=== PATIENT | male | born 1980 | race Caucasian/White ===

== ENCOUNTER 2022-10-01 22:12 | Day surgery (SDC) | payer OTHER, SELFPAY ==
[2022-10-01 22:56] VITALS: BP 141/97; PULSE 107; RESP 20; TEMP 37.5; O2SAT 98; BMI 34.2
[2022-10-01 23:00] VITALS: PULSE 91; RESP 18
[2022-10-01] MEDS: 0.9 % SODIUM CHLORIDE 1000 ml 1,000 ML 125 ML IV (23:12)
[2022-10-01 23:25] LABS: Chloride* 103 mmol/L (96-114); Potassium* 3.6 mmol/L (3.6-5.1); Sodium* 138 mmol/L (135-149)
[2022-10-01 23:28] LABS: Blood Urea Nitrogen* 15 mg/dL (5-24); Carbon Dioxide* 27 mmol/L (20-32); Creatinine* 0.9 mg/dL (0.5-1.5); Estimated Glomerular Filt Rate 109 ml/min; INR 1.11 (0.91-1.10); Prothrombin Time 14.9 Seconds
[2022-10-01 23:29] LABS: Calcium* 8.4 mg/dL (8.4-10.6); Glucose* 124 mg/dL (60-115)
--- NOTE | 2022-10-01 23:55 | PM.IMCN1 ---
Date of Consult Consult date: 10/01/22 Primary Care Provider: Not a Local Provider Consult Narrative Narrative: Jesus Powell is a 42 year old male Meds Home Medications and Allergies Allergies Allergy/AdvReac Type Severity Reaction Status Date / Time Lidocaine patch Allergy Mild Rash, Uncoded 10/01/22 23:36 redess Labs Labs: [facility] 10/01/22 23:05 Sodium 138 Potassium 3.6 Chloride 103 Carbon Dioxide 27 BUN 15 Creatinine 0.9 Glucose 124 H Calcium 8.4 Assessment and Plan Assessment and plan (1) Appendicitis: Status: Acute Plan Kris Mesaist CONSULTATION NOTE: eHospitalist was contacted by Dr. Draper With request of consultation for appendicitis: Reason for consult: Admission support HPI: This is a 42-year-old male who is transferred to the hospital after being seen in an outside ER for abdominal pain. Patient diagnosed with acute appendicitis on CT scan. White count 19,000. Lactic acid at 2.5. Patient received cefoxitin prior to transfer. Patient had Zosyn ordered by the ER provider here. His repeat labs here are pending. IV fluids are going. Currently, patient reports his pain is better after receiving morphine at the outside facility. He states he has had about a day and a half of persistent pain that has moved down to the waistline that just did not get better and that prompted him to come in to be evaluated. Currently has no other symptoms. Home Medications: None Pertinent Medical History: None Past surgical History: Back surgery Pertinent Social History: Non-smoker. Occasional alcohol use Family Hx: Hyperlipidemia Exam (performed via interactive video with assistance of bedside nurse): General: Alert, cooperative, no acute distress HEENT: EOM intact, head is normocephalic and atraumatic Ext: No deformity of the extremities is noted Skin: No rashes, bruises or lesions appreciated on gross visualization of exposed skin Neuro: Alert, oriented x 3. CN III -VII, XI, XII grossly intact, moves all extremities without any significant focal deficit appreciated Abdominal exam deferred as patient recently seen at outside ER. Refer to documentation for exam details Assessment: Acute appendicitis Plan: -As needed medications for pain and nausea -Continue Zosyn -Surgery consult for appendicitis in the morning -N.p.o. for now Thank you for including Kris Montana in the patients care. This service is available for further assistance as requested by your care team by calling [phone].
[2022-10-02] VITALS (21 sets, daily range): BP systolic 98–141; BP diastolic 65–99; PULSE 56–92; RESP 12–18; TEMP 36.6–37.2; O2SAT 92–99
[2022-10-02] MEDS: 0.9 % SODIUM CHLORIDE 1000 ml 1,000 ML IV (00:16)
[2022-10-02] MEDS: PIPERACILLIN/TAZOBACTAM 3.375 GM in 0.9 % SODIUM CHLORIDE Mini-bag 100 ML IVPB ×3 (00:17→17:15)
[2022-10-02 00:20] LABS: Basophils Percent Auto 0.1 % (0.0-3.0); Hematocrit 40.3 % (37.0-53.0); Hemoglobin* 14.2 gm/dL (13.5-17.5); Immature Granulocytes Pct Auto 0.4 %; Lymphocytes Percent Auto 8.5 % (20-44); Mean Corpuscular HGB Conc 35 gm/dL (32-36); Mean Corpuscular Hemoglobin 30 pg (26-34); Mean Corpuscular Volume 85 fL (80-100); Monocytes Percent Auto 5.4 % (0.0-11.0); Neutrophils Percent Auto 85.6 % (42.0-72.0); Platelet Count* 200 K/uL (140-440); RDW Coefficient of Variation % 11.8 % (11.5-15.5); Red Blood Count 4.74 m/uL (4.30-5.90); White Blood Count* 18.06 K/uL (4.50-11.00)
[2022-10-02 00:29] LABS: Slide Review Reflex No
[2022-10-02] MEDS: KETOROLAC 30 MG/ML inj IVP ×2 (00:47→08:38)
--- NOTE | 2022-10-02 06:28 | PC.NURSE ---
Shift note:Abdominal pain treated per eMAR with relief, pt able to rest overnight. He is afebrile, ambulates independently, no c/o nausea. Pt was NPO after midnight
[2022-10-02] MEDS: LACTATED RINGERS 1000 ML 1,000 ML 100 ML IV ×2 (07:50→12:28)
--- NOTE | 2022-10-02 09:00 | PM.GSHP ---
History of Present Illness History of Present Illness Date Seen: 10/02/22 Chief complaint: Appendicitis Narrative: Jesus Powell is a 42 year old male who presented to an outside hospital last evening with pain in his abdomen for about 1 and half days. He states that the pain began on Sunday night in the epigastric region. It then migrated down to his pelvis. Movement made his pain worse. He he had nausea and vomiting with this. He has not had any changes in bowel habits or urinary symptoms. Denies chest pain or shortness of breath. He has never had anything like this before. At the outside hospital was found to have inflammatory stranding with a dilated appendix in the right lower quadrant. There was no evidence of perforation on his CT scan. His white count was noted to be markedly elevated at 19. No surgeon was available at their hospital and he did not wish to transfer within their system and therefore he was accepted for transfer here at [facility]. [facility] Surgical History (Updated 10/02/22 @ 09:02 by Alycia Zuñiga MD) History of back surgery ?Z98.890 - Other specified postprocedural states (ICD-10) S/P hernia repair ?Z98.890 - Other specified postprocedural states (ICD-10) ?Z87.19 - Personal history of other diseases of the digestive system (ICD-10) Social History (Updated 10/02/22 @ 09:03 by Alycia Zuñiga MD) Narrative: He does not smoke. He uses alcohol occasionally. 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 What is your current living situation?: I presently have a place to live Problems where you live: no known problems In the past 12 months, utilities in danger of being shut off: no In the past 12 mos, have been you worried that your food would run out before you had money to buy more?: never true In the past 12 mos, the food you bought just didn't last and you didn't have money to buy more?: never true Highest level of school completed/degree received: high school graduate Smoking Status: Never smoker Do you use any of these nicotine containing products: None Second hand tobacco smoke exposure: No How often do you have a drink containing alcohol: monthly or less How many standard drinks containing alcohol do you have on a typical day: 1 or 2 How often do you have six or more drinks on one occasion: Never AUDIT-C Alcohol total score: 1 Non-prescribed substance use: denies use Caffeine: Yes (1-2L of caffeinated pop daily) How often does anyone, including family, friends and others, physically hurt you: never How often does anyone, including family, friends and others, insult or talk down to you: never How often does anyone, including family, friends and others, threaten you with harm: never How often does anyone, including family, friends and others, scream or curse at you: never service: No Meds Home Medications and Allergies Allergies Allergy/AdvReac Type Severity Reaction Status Date / Time Lidocaine patch Allergy Mild Rash, Uncoded 10/01/22 23:36 redess Exam Narrative: Exam Narrative: General appearance: Alert, cooperative, and in no distress Eyes: PERRLA, eye lids clear, and sclera white HENT Head: Normocephalic Ears: External ears normal Pulmonary: Clear to auscultation bilaterally Cardiovascular Heart: Regular rate and rhythm Extremities: warm and well perfused Gastrointestinal Abdominal: Tender in the right lower quadrant with rebound. Mild tenderness in the suprapubic region. No scars. Musculoskeletal: Extremities: Upper: Both upper extremities have normal joint range of motion and intact strength. Lower: Both lower extremities have normal joint range of motion and intact strength. Skin: Normal skin color, texture, and turgor. Neurologic: No focal deficits Psychiatric: Alert, oriented, cooperative, normal affect. Const: Vital Signs, click to edit/add: Vital Signs - 24 hr 10/01/22 22:56 10/01/22 23:00 10/02/22 03:00 Temperature 99.5 F 97.8 F Pulse Rate [Pulse Oximeter] 107 H 91 84 Respiratory Rate 20 18 18 Blood Pressure [Ri [facility] Radial Artery] 141/97 H 107/76 Pulse Oximetry 98 96 Oxygen Delivery Me thod Room Air Room Air Results Results Labs: White blood cell count this morning is 18 from 19. INR is 1.1. Lactate is 2.0. Additional studies: CT scan done yesterday at the outside hospital read shows a diffusely dilated appendix with adjacent inflammatory stranding no drainable fluid collections. Impression is acute uncomplicated appendicitis. Images are not available to me at this time Assessment and Plan Assessment and plan (1) Appendicitis: Status: Acute Plan The patient is a 42-year-old male with acute appendicitis. We discussed that appendectomy is the preferred treatment for this. This can most often be done laparoscopically. We discussed risks and benefits of the procedure including but not limited to bleeding, need for conversion to open, risk of injury to other structures, need for possible bowel resection, and abscess formation. The patient understands that the risk of abscess is higher if the appendix is perforated. For that reason, we generally keep patient is in the hospital on IV antibiotics until vital signs and white blood cell count had normalized. We also discussed recovery including 2 weeks of lifting restrictions. We are planning on surgery urgently this morning.
[2022-10-02] MEDS: PIPERACILLIN/TAZOBACTAM 3.375 GM INJ IVPB (10:10)
[2022-10-02] MEDS: BUPIVACAINE 0.5% 30 ML 20 ML INJECTION (10:55)
--- NOTE | 2022-10-02 11:10 | PM.GSPRC ---
Operative Note Date of procedure: 10/02/22 Pre-op diagnosis: Acute appendicitis Post-op diagnosis: Same Type of Procedure: Laparoscopic appendectomy Indications: The patient is a 42-year-old male who presented with 2 days of abdominal pain to an outside hospital. Workup revealed acute appendicitis without evidence of perforation. Because of surgeon availability he was transferred to our facility for management. Procedure Description: After discussing the risks and benefits of the procedure, the patient signed informed consent.? The operative site was marked and the patient was brought to the operating room and placed on the operating table in supine position.? Care was taken to pad the patient's pressure points.?? The patient was then intubated by anesthesia.?? The operative site was then prepped and draped in the usual sterile fashion.? A time-out was then performed. Entrance to the abdomen was obtained via a 5 mm optical trocar in the left upper quadrant. The abdomen was insufflated and briefly surveyed for any signs of injury. There were none. A 12 mm port was placed inferior to the umbilicus as well as a 5 mm port in the left lower quadrant. Both were done under direct vision. The patient was then placed in Trendelenburg position with the right side up. The small bowel was gently moved out of the way and the appendix was in view. There was fibrinous exudate and the pericolonic fat of the sigmoid colon as well as the small bowel had walled off the appendix. The appendix was very carefully bluntly dissected from the surrounding tissue. There was no evidence of free perforation. The fibrinous exudate was removed from the abdomen. The appendix was grasped gently and pulled into view. It was very inflamed and friable and even with careful manipulation it did tear. There was no spillage of purulence into the abdomen with this however. A mesenteric window was created between the base of the appendix and the mesoappendix. An Endo-DWAYNE purple load stapler was then used to transect the appendix at its base. A vascular load stapler was then used to divide the mesoappendix. The staple lines were inspected for bleeding. There was none. The appendix was then removed from the abdomen using an Endo-Catch bag. The specimen was sent to pathology. The appendiceal bed was then very carefully examined for hemostasis. There was no purulence, however all inflammatory fluid was suctioned. The ports were then removed and the abdomen desufflated. The 12 mm port site fascia was closed with 0 Vicryl. The skin was then closed with absorbable subcuticular suture. Sterile dressings were then applied. Instrument sponge and needle counts were correct at the end of the case. The patient was then woken and transported to the PACU in stable condition. The patient tolerated the procedure well. Findings: Inflamed appendix without obvious perforation Anesthesia: GETA Surgeon: Alycia Zuñiga MD Estimated blood loss (mL): 5 Specimen: Appendix Condition: stable Disposition: PACU
--- NOTE | 2022-10-02 11:33 | P.ANES_ITS ---
Anesthesia Charges Start Date/Time Anesthesia Start Date: 10/02/22 Anesthesia Start Time: 09:56 Stop Date/Time Anesthesia Stop Date: 10/02/22 Anesthesia Stop Time: 11:29 Summary Emergency: [facility]
[2022-10-02] MEDS: HYDROCODONE-ACETAMIN 5-325 MG 1 TAB PO (15:11)
--- NOTE | 2022-10-02 17:50 | PC.NURSE ---
Discharge note: Patient vitally stable. Patient remains afebrile. Patient tolerating po intake. Patient voiding well and passing gas. Patient PIV removed. All concerns addressed and discharge instructions reviewed with patient and . discharged to home with .
== END 2022-10-02 17:50 | disposition home or self-care (01) ==
LOC: SS 22:14 → MEDSURG 22:16
PROVIDERS: Hospitalist; Visit Provider Surgery
PROC: 0DTJ4ZZ Resection of Appendix, Percutaneous Endoscopic Approach (ICD-10-PCS; CPT 44970; principal; 2022-10-02 10:15)
DX: K35.80 Unspecified acute appendicitis (principal)
CPT/HCPCS: 44970; 00840; 36415; 80048; 83605; 85025; 85610; 88304; 99140; A9270; J0330; J0665; J1100; J1885; J2250; J2405; J2543; J2704; J2710; J3010; J3490; J7030; J7120